=== PATIENT | female | born 1950 | race Caucasian/White ===

== ENCOUNTER 2018-04-24 20:28 | Emergency (ER) | payer OTHER ==
[~2018-04-24] VITALS: Ht 157.5 cm; Wt 40.8 kg
[2018-04-24 21:15] VITALS: BP 146/76
[2018-04-24] MEDS ORDERED: TETANUS-DIPTH-ACEL PERTUSSIS 0.5ML SYRG IM ONE (22:45)
[2018-04-24] MEDS ORDERED: LIDOCAINE 2% (LOCAL ANESTH.) PF 5ml SDV ONE (23:30)
[2018-04-24] MEDS ORDERED: traMADol HCL 50 MG TAB PO ONE (23:30)
[2018-04-24] MEDS ORDERED: ceFAZolin 1GM/50ML 50 ML IV ONE (23:45)
[2018-04-25] MEDS ORDERED: NEOMYCIN-BACITRACIN-POLYM 15GM TOP OINT TOP STA (01:37)
== END 2018-04-25 02:23 | disposition home or self-care (01) ==
LOC: ER 20:28
DX: S52.532A Colles' fracture of left radius, initial encounter for closed fracture (principal); S61.012A Laceration without foreign body of left thumb without damage to nail, initial encounter; W01.198A Fall on same level from slipping, tripping and stumbling with subsequent striking against other object, initial encounter; Y93.89 Activity, other specified; Y99.8 Other external cause status; Y92.89 Other specified places as the place of occurrence of the external cause
CPT/HCPCS: 12042; 29125; 73110; 73130; 73200; 90471; 90715; 96365; 99285; J0690; J2001